=== PATIENT | male | born 1985 | race Two or more races ===

== ENCOUNTER 2024-05-22 07:56 | Outpatient (AMB) | payer OTHER, SELFPAY ==
--- NOTE | 2024-05-22 08:50 | MHC.OFFVISWM ---
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: Details: Start time: 8.43am, End time: 9.25am ?I spent 37 minutes speaking with the patient on the phone plus an additional 5 minutes reviewing and updating records for a total of 42 minutes HPI Comments Details: Previous weight loss efforts: self diets Wakes up: 6am, Sleeps: 10pm Breakfast: skips Lunch: 12pm (rice, beans and meat) Dinner: 7-8pm (same as lunch) Snacks: 9-10pm (sandwich) Exercise: has home treadmill and bike Fluids: Coffee: none, tea: none, soda: 2/wk (regular Coke), juice: 2-3/wk (lemonade, Grape juice), ETOH: 2/wk (6-7 beers each time) PFSH Medical History (Updated 05/22/24 @ 08:55 by Nathanael Oscar MD) Hypertension Hyperlipidemia Anxiety GERD (gastroesophageal reflux disease) Morbid obesity Surgical History (Updated 05/16/24 @ 14:43 by Marie Rosas CMA) Hx of knee surgery Family History (Updated 05/16/24 @ 14:51 by Marie Rosas CMA) Mother Depression Hypertension Father Hypertension Daughter No problems noted. Daughter No problems noted. Social History (Updated 05/16/24 @ 14:51 by Marie Rosas CMA) Alcohol intake: current Alcohol intake frequency: holidays/special occasions only Patient Tobacco Use Status: Never used Tobacco Telehealth Telehealth Telehealth Platform: Telephone Location of provider rendering services: practice address Location of patient: address on file Patient Identification confirmed using: Name, : Yes Telehealth method: voice only Patient verbally consented to treatment: Yes Patient verbally consented to billing insurance company: Yes Patient informed of any privacy concerns related to visit: Yes Minutes spent on Phone/Video with Pt.: 42 Assessment & Plan Assessment & Plan (1) Morbid obesity: Code(s): E66.01 - Morbid (severe) obesity due to excess calories Category: Medical Plan: 1.? Plan for lap sleeve gastrectomy. If diaphragmatic or ventral hernias are present at time of surgery, these will be repaired laparoscopically as well. I emphasized the importance of close follow-up, adherence to instructions and good communication. The surgery does not replace the need to change your lifestlyle which is the cause of the obesity problem. The surgery provides the motivation to try again to change your lifestyle, it reduces the appetite and make the transition to a better lifestyle easier and doubles the amount of weight you would lose compared to doing the lifestyle change without the surgery. You will need to be on a liquid diet with protein shakes for 2 weeks before surgery to maximize weight loss and boost your nutritional status to recover better from surgery and also for the first two weeks after surgery to let the stomach heal before we introduce other foods. After the first 2 weeks we will introduce protein bars and soft foods like scrambled eggs, cottage cheese and yogurt and after the 6th week will introduce meat, fish and cooked vegetables in small amounts. Over time you should be able to eat everything in small amounts. Side effects like nausea, vomiting, heartburn or abdominal pain are not common in the practice unless you are not following in the practice. This operation requires lifetime commitment to following in our practice and communication with me. You will much less weight and experience side effects if you don?t communicate or not following in the practice. Complications are rare and in our practice is about 1/10 of the national average. However, you can develop bleeding that may require transfusion (hasn?t happened for year in the practice), you may from complications (we did not have any deaths in the practice) and infections. Infections are usually a result of breakdown in communication or not understanding or following directions correctly. They are difficult to treat, they can happen during the first 6 weeks, they may require to be in the hospital for weeks or even months, not being able to eat by mouth and you may have drains and surgeries to try and correct the issue. Other risks and complications include possible conversion to an open procedure, leaks, small bowel obstruction, blood clots, cardiac, or pulmonary complications, as correction complications such as ulcers, insufficient weight loss and vitamin deficiencies. 2. You will receive a link of our software steffanie to generate an individualized nutritional and exercise plan specific for you. Please send me a screenshot of the plans you will generate Meal to include lean meat (beef, fish, pork, turkey, chicken), or albanian yogurt, or egg whites, or beans with a salad with olive oil and fruits (berries, pears, apples, kiwi). Avoid salt, breads, potatoes, rice, pasta, desserts. ?3. If you choose shakes, each shake would be drunk slowly, like coffee in a period of 2 hours. ?4. If you choose bars, cut each bar in 4 pieces and eat each piece in 30min ?to make each bar last 2 hours. ?5. I emphasized the importance of measuring accurately the food portion and measure it when serving the food in plate ?6. The meal portions include a specific number of forks of meat and salad. You always eat the meat portion but you can replace up to half of salad/vegetables portion with rice, potatoes or pasta, or a fruit ?if you like. The less you do it the better weight loss will be. ?7. One full-size fork is what it can be scooped on the fork without falling aside and not what can be bit with the fork. Use regular forks like those you find in a typical restaurant. ?8.? Please buy the body composition scale we discussed and send me weight measurements as soon as possible and then once a week. Always include your diet and exercise plan. 9. The best choice would be to purchase a stationary bike, elliptical or treadmill at home that can track calories. Let me know if you do so I can give you an exercise plan. ?10. Goal is to lose at least 1.5-2lbs per week ?11. Goal to lose 10% of your weight before surgery, which is about 29lbs. Ultimate weight goal: 262lbs before surgery 12. Please follow the diet plan exactly without any change. If you don't like something about the plan or you feel hungry you need to communicate with me so I can help you revise the plan. You should not change the plan yourself. 13. To be scheduled for EGD on 06/08/2024 due to the history of GERD. The possibility of biopsies was discussed. Patient needs to avoid use of NSAIDs and aspirin for 1 week prior to EGD. You must be on liquids only the day before your endoscopy. Risks of perforation and bleeding was discussed with the patient. This will be an outpatient procedure with IV sedation. Orders: Orders Insulin Today E66.01 - Morbid (severe) obesity due to excess calories, E78.5 - Hyperlipidemia, unspecified, I10 - Essential (primary) hypertension, K21.9 - Gastro-esophageal reflux disease without esophagitis Hemoglobin A1c Today E66.01 - Morbid (severe) obesity due to excess calories, E78.5 - Hyperlipidemia, unspecified, I10 - Essential (primary) hypertension, K21.9 - Gastro-esophageal reflux disease without esophagitis H Pylori Breath Test Today E66.01 - Morbid (severe) obesity due to excess calories, E78.5 - Hyperlipidemia, unspecified, I10 - Essential (primary) hypertension, K21.9 - Gastro-esophageal reflux disease without esophagitis Lipid Panel Today E66.01 - Morbid (severe) obesity due to excess calories, E78.5 - Hyperlipidemia, unspecified, I10 - Essential (primary) hypertension, K21.9 - Gastro-esophageal reflux disease without esophagitis IRON PROFILE Today E66.01 - Morbid (severe) obesity due to excess calories, E78.5 - Hyperlipidemia, unspecified, I10 - Essential (primary) hypertension, K21.9 - Gastro-esophageal reflux disease without esophagitis C Reactive Protein Today E66.01 - Morbid (severe) obesity due to excess calories, E78.5 - Hyperlipidemia, unspecified, I10 - Essential (primary) hypertension, K21.9 - Gastro-esophageal reflux disease without esophagitis Vitamin B1 Today E66.01 - Morbid (severe) obesity due to excess calories, E78.5 - Hyperlipidemia, unspecified, I10 - Essential (primary) hypertension, K21.9 - Gastro-esophageal reflux disease without esophagitis Vitamin A Today E66.01 - Morbid (severe) obesity due to excess calories, E78.5 - Hyperlipidemia, unspecified, I10 - Essential (primary) hypertension, K21.9 - Gastro-esophageal reflux disease without esophagitis TSH reflex Free T4 Today E66.01 - Morbid (severe) obesity due to excess calories, E78.5 - Hyperlipidemia, unspecified, I10 - Essential (primary) hypertension, K21.9 - Gastro-esophageal reflux disease without esophagitis Ferritin Today E66.01 - Morbid (severe) obesity due to excess calories, E78.5 - Hyperlipidemia, unspecified, I10 - Essential (primary) hypertension, K21.9 - Gastro-esophageal reflux disease without esophagitis Vitamin D 25-OH Total Today E66.01 - Morbid (severe) obesity due to excess calories, E78.5 - Hyperlipidemia, unspecified, I10 - Essential (primary) hypertension, K21.9 - Gastro-esophageal reflux disease without esophagitis XR chest 2V Today E66.01 - Morbid (severe) obesity due to excess calories, E78.5 - Hyperlipidemia, unspecified, I10 - Essential (primary) hypertension, K21.9 - Gastro-esophageal reflux disease without esophagitis FL upper GI w air Today E66.01 - Morbid (severe) obesity due to excess calories, E78.5 - Hyperlipidemia, unspecified, I10 - Essential (primary) hypertension, K21.9 - Gastro-esophageal reflux disease without esophagitis Complete Blood Count Auto Diff Today E66.01 - Morbid (severe) obesity due to excess calories, E78.5 - Hyperlipidemia, unspecified, I10 - Essential (primary) hypertension, K21.9 - Gastro-esophageal reflux disease without esophagitis Comprehensive Met. Panel Today E66.01 - Morbid (severe) obesity due to excess calories, E78.5 - Hyperlipidemia, unspecified, I10 - Essential (primary) hypertension, K21.9 - Gastro-esophageal reflux disease without esophagitis Vitamin B12 and Folate Today E66.01 - Morbid (severe) obesity due to excess calories, E78.5 - Hyperlipidemia, unspecified, I10 - Essential (primary) hypertension, K21.9 - Gastro-esophageal reflux disease without esophagitis Zinc Today E66.01 - Morbid (severe) obesity due to excess calories, E78.5 - Hyperlipidemia, unspecified, I10 - Essential (primary) hypertension, K21.9 - Gastro-esophageal reflux disease without esophagitis US abdomen comp w elastography Today E66.01 - Morbid (severe) obesity due to excess calories, E78.5 - Hyperlipidemia, unspecified, I10 - Essential (primary) hypertension, K21.9 - Gastro-esophageal reflux disease without esophagitis ECG 12 lead EKG Today E66.01 - Morbid (severe) obesity due to excess calories, E78.5 - Hyperlipidemia, unspecified, I10 - Essential (primary) hypertension, K21.9 - Gastro-esophageal reflux disease without esophagitis Referrals Behavioral Health Referral E66.01 - Morbid (severe) obesity due to excess calories, E78.5 - Hyperlipidemia, unspecified, I10 - Essential (primary) hypertension, K21.9 - Gastro-esophageal reflux disease without esophagitis Nutrition/Dietitian Referral E66.01 - Morbid (severe) obesity due to excess calories, E78.5 - Hyperlipidemia, unspecified, I10 - Essential (primary) hypertension, K21.9 - Gastro-esophageal reflux disease without esophagitis
[2024-05-22 08:59] VITALS: BMI 40.6
== END 2024-05-22 09:25 | disposition home or self-care (01) ==
LOC: HO.HBS 07:56
PROVIDERS: Visit Provider Surgery
DX: E66.813 Obesity, class 3 (principal); Z68.41 Body mass index [BMI] 40.0-44.9, adult
CPT/HCPCS: 99203

== ENCOUNTER 2024-06-02 14:01 | Outpatient (AMB) | payer OTHER, SELFPAY ==
--- NOTE | 2024-06-02 13:30 | A.OFFWM_ITS ---
Intake Intake Visit Reasons: VIDEO BH Intake Allergies No Known Allergies Allergy (Verified 06/08/24 12:48) PFSH Medical History Hypertension Hyperlipidemia Anxiety GERD (gastroesophageal reflux disease) Morbid obesity Surgical History Hx of knee surgery Family History Mother Depression Hypertension Father Hypertension Daughter No problems noted. Daughter No problems noted. Social History Are you a primary clinical care manager to a significant other at home: No Do you presently have visiting nurse or other home services: No Alcohol intake: current Alcohol intake frequency: holidays/special occasions only Patient Tobacco Use Status: Former Tobacco user Have you been hit, kicked, punched, or otherwise hurt by someone within the past year? If so, by whom?: No Are you DNR?: No Advance Directives: No Advance Directives Information Provided: Yes Recently lost weight without trying: No Nutrition Risks: No Nutritional Risk Behavioral Health Assessment Weight Management Therapy Therapy Notes Details PT is a 38 years old Male, who presents for initial visit to complete BH assessment as part of surgical weight loss program. Presenting Concerns Referral Source WMP-Provider. Pt had initial visit with Dr. Hope on 05/22/2024 Reason for referral Completion of behavioral health assessment as part of process for weight-loss surgery. Precipitating Event Obesity. initial weight: 291Lbs. Living Situation Current Living Situation Own At risk of losing current housing? No Satisfied with current living situation? Yes Comments PT lives with his , 2 daughters and recently his parents. Food/Weight/Diet Expectations of change Initial goal is to lose 10% of his weight before surgery, which is about 29lbs. Ultimate weight goal: 262lbs before surgery Initial weight on 05/22/2024: 291Lbs Most recent plan: PT is implementing the following: Current meal plan: 2 shakes, 2 bars and 1 meal (10F/10F) Exercise plan: has a treadmill and a bike at home. Trying to do at least 30 min at day to start. History/Relationship with food PT reports he tends to eat more when stressed or gets anxious. Example of meals before starting the program: Breakfast: Lunch: Dinner: Snacks: Drinks/Liquids: History/Relationship with weight In the last 10 years, the patient's Lowest weight was and highest Social History Family history and relationship PT is 13 years ago. They have 2 daughter, a 12 y/o and a 2 y/o. Parents are both alive, current living at his home temporarily. He has a sister. However she's distant from everybody. PT reports he has good family dynamics. 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 Developmental history and status Reading and writing issues, received support in school. Still is weak . He was on special education program. Social support , parents. Community support PCP. [employer] [facility]. Cultural/Ethnic information [place], born [place], moved to the [place] at age 10. PT speaks [place] and [place]. Legal Involvement and History Current or historical involvement with the legal system? None. Education Highest grade completed 9th grade. Preferred learning style Learn by doing and Visual Currently enrolled in educational program? No Interested in further educational program? No Educational Interests/Skills PT is interested in obtaining his GED. 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 [employer]) Wants help to find employment? No Meaningful activities Family activities. None for himself or on his own. Financial Situation Describe current financial situation Comfortable and Occasional struggle Financial assistance? Food [place] Service Service? No Mental Health and Addiction Treatment Current/Past substance abuse? Yes Comments Alcohol: big beer drinking . Drinks 6+ beers 1-2 times at week. Cigarettes/Tobacco: None Cannabis/Edibles: None. Current/Past addictive behavior concerns? No Psychiatric history PT reports he is not in any type of MH treatment at the moment. He was Dx with anxiety when younger, and he attended services trough his PCP and took some medicine for a short period of time. PT reports he's still an overthinker, at times loss sleep when stressed. PT denies ever been in crisis or inpatient for mental health. There is no history and/or current concern about SI/SA and self-harm or other harm. Medical and Physical Health Summary Additional Medical History not covered in history None. Sexual History concerns None reported. Physical exam in the last year? Yes Pain Screening Current pain? No Pain in the last few months? Yes Comments knee pain when cold or stands for a long period of time. He had a surgery. Medications Is the patient compliant with medications? Not applicable Does the patient have Cid Guardian in place? Not applicable Does the patient use complimentary health approaches? No Questionnaires PHQ-9 Over the last 2 weeks, how often have you been bothered by any of the following problems? 1. Little interest or pleasure in doing things: not at all 2. Feeling down, depressed, or hopeless: not at all 3. Trouble falling or staying asleep, or sleeping too much: not at all 4. Feeling tired or having little energy: not at all 5. Poor appetite or overeating: not at all 6. Feeling bad about yourself - or that you are a failure or have let yourself or your family down: not at all 7. Trouble concentrating on things, such as reading the newspaper or watching television: not at all 8. Moving or speaking so slowly that other people could have noticed. Or the opposite - being so fidgety or restless that you have been moving around a lot more than usual: not at all 9. Thoughts that you would be better off or of hurting yourself in some way: not at all Total score: 0 Depression Screening Interpretation: Negative (Form new PT pack) Depression Screening Done: Yes Source: Developed by Drs. Sandoval Brito, Ana Bhagat, Jim Sandhu and colleagues, with an educational ezekiel from [employer]. Binge Eating Scale Group 1 A. I don't feel self-conscious about my wt. or body size when I'm with others. B. I feel concerned about how I look to others, but it normally does not make me fell disappointed with myself C. I do get self-conscious about my appearance and wt. which makes me feel disappointed in myself. D. I feel very self-conscious about my wt. and frequently I feel intense shame and disgust for myself. I try to avoid social contacts because of my self- consciousness. Response Group 1: C Group 2 A. I don't have any difficulty eating slowly in the proper manner. B. Although I seem to gobble down foods, I don't end up feeling stuffed because of eating to much. C. At times, I tend to eat quickly and then, I feel uncomfortably full afterwards. D. I have the habit of bolting down my food, without really chewing it. When this happens I usually feel uncomfortably stuffed because I've eaten to much. Response Group 2: A Group 3 A. I feel capable to control my eating urges when I want to. B. I feel like I have failed to control my eating more than the average person. C. I feel utterly helpless when it comes to feeling in control of my eating urges. D. Because I feel so helpless about controlling my eating I have become very desperate about trying to get control. Response Group 3: A Group 4 A. I don't have the habit of eating when I'm bored. B. I sometimes eat when I'm bored, but often I'm able to get busy and get my mind off food. C. I have a regular habit of eating when I'm bored, but occasionally, I can use some other activity to get my mind off eating. D. I have a strong habit of eating when I'm bored. Nothing seems to help me breath the habit. Response Group 4: B Group 5 A. I'm usually physically hungry when I eat something. B. Occasionally, I eat something on impulse even though I really am not hungry. C. I have the regular habit of eating foods, that I might not really enjoy, to satisfy a hungry feeling even though physically, I don't need the food. D. Although I'm not physically hungry, I get a hungry feeling in my mouth that only seems to be satisfied when I eat a food, like sandwich, that fills my mouth. Sometimes, when I eat the food to satisfy my mouth hunger, I then spit the food out so I won't gain weight. Response Group 5: A Group 6 A. I don't feel any guilt or self-hate after I overeat. B. After I overeat, occasionally I feel guilt or self-hate. C. Almost all the time I experience strong guilt or self-hate after I overeat. Response Group 6: B Group 7 A. I don't lose total control of my eating when dieting even after periods when I overeat. B. Sometimes when I eat a forbidden food on a diet, I feel like I blew it and eat even more. C. Frequently, I have the habit of saying to myself, I've blown it now, why not go all the way, when I overeat on a diet. When that happens I eat more. D. I have a regular habit of starting a strict diets for myself but I break the diets by going on an eating binge. My life seems to be either a feast or famine. Response Group 7: A Group 8 A. I rarely eat so much food that I feel uncomfortably stuffed afterwards. B. Usually about once a month, I each such a quantity of food, I end up feeling very stuffed. C. I have regular periods during the month when I eat large amounts of food, either at mealtime or at snacks. D. I eat so much food that I regularly feel quite uncomfortable after eating and sometimes a bit nauseous. Response Group 8: A Group 9 A. My level of calorie intake does not go up very high or go down very low on a regular basis. B. Sometimes after I overeat, I will try to reduce my caloric intake to almost nothing to compensate for the excess calories I've eaten. C. I have a regular habit of overeating during the night. It seems that my routine is not to be hungry in the morning but overeat in the evening. D. In my adult years, I have had week-long periods where I practically starve myself. This follows periods when I overeat. It seems I live a life of either fe ast or famine. Response Group 9: A Group 10 A. I usually am able to stop eating when I want to. I know when enough is enough. B. Every so often, I experience a compulsion to eat which I can't seem to control. C. Frequently, I experience strong urges to eat which I seem unable to control, but at other times I can control my eating urges. D. I feel incapable of controlling urges to eat. I have a fear of not being able to stop eating voluntarily. Response Group 10: A Group 11 A. I don't have any problem stopping eating when I feel full. B. I usually can stop eating when I feel full but occasionally overeat leaving me feeling uncomfortably stuffed. C. I have a problem stopping eating once I start and usually I feel uncomf ortably stuffed after I eat a meal. D. Because I have a problem not being able to stop eating when I want, I sometimes have to induce vomiting to relieve my stuffed feeling. Response Group 11: A Group 12 A. I seem to eat just as much when I'm with others, Family social gatherings as when I'm by myself. B. Sometimes, when I'm with other persons, I don't eat as much as I want to eat because I'm self-conscious about my eating. C. Frequently, I eat only a small amount of food when others are present, because I'm very embarrassed about my eating. D. I feel so ashamed about overeating that I pick times to overeat when I know no one will see me. I feel like a closet eater. Response Group 12: A Group 13 A. I eat three meals a day with only an occasional between meal snack. B. I eat 3 meals a day, but I also normally snack between meals. C. When I am snacking heavily, I get in the habit of skipping regular meals. D. There are regular periods when I seem to be continually eating, with no planned meals. Response Group 13: A Group 14 A. I don't think much about trying to control unwanted eating urges. B. At least some of the time, I feel my thoughts are pre-occupied with trying to control my eating urges. C. I feel that frequently I spend much time thinking about how much I ate or about trying not to eat anymore. D. It seems to me that most of my waking hours are pre-occupied by thoughts about eating or not eating. I feel like I'm constantly struggling not to eat. Response Group 14: A Group 15 A. I don't think about food a great deal. B. I have strong craving for food but they last only for brief periods of time. C. I have days when I can't seem to think about anything else but food. D. Most of my days seem to be pre-occupied with thoughts about food. I feel like I live to eat. Response Group 15: A Group 16 A. I usually know whether or not I'm physically hungry. I take the right portion of food to satisfy me. B. Occasionally, I feel uncertain about knowing whether or not I'm physically hungry. A these times it's hard to know how much food I should take to satisfy me. C. Even though I might know how many calories I should eat, I don't have any idea what is a normal amount of food for me. Response Group 16: A Binge Eating Score: 4 Score less than 17 Minimal Risk Score between 18-26 Moderate Risk Score between 27-46 High Risk Assessment & Plan Assessment & Plan (1) Adjustment disorder with anxiety: Code(s): F43.22 - Adjustment disorder with anxiety Plan Not cleared yet. Will return in 2 weeks to finish assessment. Next steffanie: 06/15/24 at 11am, Telehealth Telehealth Telehealth Platform: [facility] Location of provider rendering services: practice address Location of patient: address on file Patient Identification confirmed using: Name, : Yes Telehealth method: voice only Patient verbally consented to treatment: Yes Patient verbally consented to billing insurance company: Yes Patient informed of any privacy concerns related to visit: Yes Minutes spent on Phone/Video with Pt.: 60 Coding Level of Care Code New Pt Tele Psy Diag Eval (55261) Patient Type New Diagnoses Adjustment disorder with anxiety F43.22 Time Spent (min) 60
== END 2024-06-02 14:49 | disposition home or self-care (01) ==
LOC: HO.HBST 14:01
PROVIDERS: Visit Provider Counselor Mental Health
DX: F43.22 Adjustment disorder with anxiety (principal)
CPT/HCPCS: 90791

== ENCOUNTER 2024-06-08 10:47 | Outpatient (REF) | payer OTHER, SELFPAY ==
--- NOTE | ~2024-06-08 | XR_ITS ---
EXAMINATION: XR CHEST 2 VIEWS HISTORY: E66.01 - Morbid (severe) obesity due to excess calories COMPARISON: There are no prior studies for comparison. FINDINGS: PA and lateral views of the chest are submitted. The lungs are expanded and clear. There is no pleural effusion, pneumothorax, or pulmonary vascular congestion. The heart is normal in size. The bones are intact. XR/XR chest 2V IMPRESSION: Normal examination of the chest. Electronically signed by: Sandoval Naranjo MD 06/09/2024 07:57 AM EST
--- NOTE | 2024-06-08 10:55 | ECG_ITS ---
Test Reason : MOR OBS Blood Pressure : */* mmHG Vent. Rate : 59 BPM Atrial Rate : 59 BPM P-R Int : 160 ms QRS Dur : 98 ms QT Int : 404 ms P-R-T Axes : 20 15 -5 degrees QTcB Int : 399 ms Sinus bradycardia Otherwise normal ECG No previous ECGs available Referred By: Nathanael Oscar Electronically Signed By: Manfred Pablo
[2024-06-08 11:35] LABS: MANUAL DIFF FLAG NO
[2024-06-08 12:06] LABS: Basophils Absolute Auto 0.1 X10*3/uL (0.0-0.2); Basophils Percent Auto 1.1 % (0-2); Eosinophils Absolute Auto 0.3 X10*3/uL (0.0-0.4); Eosinophils Percent Auto 4.4 % (0-4); Hematocrit 46.6 % (42.0-52.0); Hemoglobin 15.7 g/dl (14.0-18.0); Imm Gran Abs Auto 0.03 X10*3/uL (0.00-0.03); Imm Gran Pct Auto 0.4 % (0.0-0.4); Lymphocytes Absolute Auto 2.3 X10*3/uL (1.2-4.9); Lymphocytes Percent Auto 32.9 % (20-40); Mean Corpuscular HGB Conc 33.7 g/dl (31.0-36.0); Mean Corpuscular Hemoglobin 27.9 pg (27.0-33.0); Mean Corpuscular Volume 82.8 fL (80.0-98.0); Mean Platelet Volume 9.7 fL (9.4-12.4); Monocytes Absolute Auto 0.5 X10*3/uL (0.1-1.2); Monocytes Percent Auto 7.5 % (2-11); Neutrophils Absolute Auto 3.8 x10*3/uL (2.0-8.3); Neutrophils Percent Auto 53.7 % (45-73); Platelet Count 263 X10*3/uL (160-400); Red Blood Count 5.63 X10*6/uL (4.60-5.80); Red Cell Distribution Width 12.7 % (11.0-16.0); White Blood Count 7.1 X10*3/uL (4.8-10.8)
[2024-06-08 12:16] LABS: Estimated Average Glucose 114 mg/dL; Hemoglobin A1C 153.6796 umol/L; Hemoglobin A1c % 5.6 % (<6.0); Total Hemoglobin (HGBA1C) 4115.7356 umol/L
[2024-06-08 12:57] LABS: Alanine Aminotransferase 39 U/L (0-40); Albumin Level 4.8 g/dL (3.5-5.0); Alkaline Phosphatase 57 U/L (39-117); Anion Gap 11 (12-20); Aspartate Amino Transferase 39 U/L (5-37); Bilirubin Total 0.6 mg/dL (0.0-1.0); Blood Urea Nitrogen 14 mg/dL (9-16); C Reactive Protein 0.36 mg/dL (< or = 0.50); Calcium 9.4 mg/dL (8.4-10.2); Carbon Dioxide 28 mmol/L (22-29); Chloride 106 mmol/L (96-108); Cholesterol 232 mg/dL (<200); Estimated Glomerular Filt Rate > 60; Glucose Random 101 mg/dL (60-115); HDL Cholesterol 41 mg/dL (>40); Iron 112 mcg/dL (45-160); LDL Cholesterol Calculated 142 mg/dL (<100); Percent Iron Saturation 35 % (15-50); Potassium 4.1 mmol/L (3.3-5.1); Sodium 141 mmol/L (135-145); Total Iron Binding Capacity 319 mcg/dL (228-428); Total Protein 8.5 g/dL (6.5-8.0); Triglycerides 248 mg/dL (<150); Unsaturated Iron Binding 207 ug/dL
[2024-06-08 12:59] LABS: Ferritin 343 ng/mL (20-250); Vitamin D 25-OH Total 24.2 ng/mL (>30)
[2024-06-08 13:07] LABS: Folate 7.5 ng/mL (> or = 4.0); Vitamin B12 600 pg/mL (200-900)
[2024-06-08 13:31] LABS: Insulin 11 uU/mL (2-29)
[2024-06-13 18:54] LABS: Zinc 90 mcg/dL (60-130)
[2024-06-14 12:18] LABS: Vitamin A 78 mcg/dL (38-98)
[2024-06-14 15:29] LABS: Vitamin B1 <6 nmol/L (8-30)
== END 2024-06-08 10:48 | disposition home or self-care (01) ==
LOC: HO.LAB 10:47
PROVIDERS: Visit Provider Surgery
DX: E66.01 Morbid (severe) obesity due to excess calories (principal); K21.9 Gastro-esophageal reflux disease without esophagitis; I10 Essential (primary) hypertension; E78.5 Hyperlipidemia, unspecified
CPT/HCPCS: 36415; 71046; 80053; 80061; 82306; 82607; 82728; 82746; 83036; 83525; 83540; 84425; 84443; 84590; 84630; 85025; 86140; 93005

== ENCOUNTER → 2024-06-08 10:55 | Outpatient (BNV) | payer OTHER, SELFPAY | PROVIDERS: Visit Provider Internal Medicine Cardiovascular Disease | DX: R00.1 Bradycardia, unspecified (principal) | CPT/HCPCS: 93010 ==

== ENCOUNTER → 2024-06-08 11:38 | Outpatient (BNV) | payer OTHER, SELFPAY | PROVIDERS: Visit Provider Radiology Diagnostic Radiology | DX: Z01.818 Encounter for other preprocedural examination (principal) | CPT/HCPCS: 71046 ==

== ENCOUNTER 2024-06-08 12:07 | Day surgery (SDC) | payer OTHER, SELFPAY ==
--- OUTSIDE RECORDS SUMMARY | 2024-06-05 18:45 | XMS_ITS | Continuity of Care Document ---
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 unchanged. The fatigue occurs constantly. The patient presents with fatigue and somnolence. The patient does not present with nausea or vomiting. Risk factors include depression. The patient denies any chills, constipation, dyspnea, flank pain, hoarseness and pruritus. Additional information: had some dizziness upon starting wellbutrin but resolved. feeling good with medication, hasn't increased to BID dosing yet, wasn't sure if it was ok. Acne The patient pres ents with acne that began 4 months ago. The problem is moderate and unchanged. Area(s) affected include the back, chest and face. Additional information: ater stopping T. depression This is an initi al visit. The patient reports functioning as somewhat difficult. The patient presents with difficulty concentrating, excessive worry and fatigue but denies restlessness or thoughts of or suicide. Interventions the patient has tried have not provided any relief. preventive exam in grow hair preventive exam Men's preventive visit. Eye problems Functional Status Date Functional Assessmen t No Information Instructions Date Instruction Additional Infor rafikaushik Dietary and exercise management, guidance, and counseling Related to Morbid (severe) obesity due to excess calories Dietary and exercise management, guidance, and counseling Related to Body mass index (BMI) 40.0-44.9, adult Dietary and exercise management, guidance, and counseling Related to Obesity, unspecified Dietary and exercise management, guidance, and counseling Related to Body mass index (BMI) 39.0-39.9, adult Dietary management e ducation, guidance, and counseling Related to Body mass index (BMI) 38.0-38.9, adult Dietary management e ducation, guidance, and counseling Related to Body mass index (BMI) 37.0-37.9, adult Assessments Type Assessment Date No Information Patient Care Teams Name Effective Dates (start - stop) Status Members No Information
[2024-06-06 06:44] VITALS: BMI 40.6
--- NOTE | 2024-06-06 14:30 | HO.ANESPROP2 ---
Documented by User: Ingrid Guy NP 06/06/24 14:30 HPI - Anesthesia Eval Consult details Narrative: 38yo M for Upper Endoscopy PMFSH Active Problems Active Problems: All Active Problems Hypertension (Acute) Hyperlipidemia (Acute) Anxiety (Acute) GERD (gastroesophageal reflux disease) (Acute) Morbid obesity (Acute) Past Medical History Medical History Hypertension Hyperlipidemia Anxiety GERD (gastroesophageal reflux disease) Morbid obesity Family History Family History Mother Depression Hypertension Father Hypertension Daughter No problems noted. Daughter No problems noted. Surgical History Surgical History Hx of knee surgery Social History Social History Are you a primary child day care center worker to a significant other at home: No Do you presently have visiting nurse or other home services: No Alcohol intake: current Alcohol intake frequency: holidays/special occasions only Patient Tobacco Use Status: Former Tobacco user Meds Allergies Allergy/AdvReac Type Severity Reaction Status Date / Time No Known Allergies Allergy Verified 06/08/24 12:48 Home Medications ?Medication ?Instructions ?Recorded ?Confirmed ?Last Taken ?Type omeprazole 20 mg capsule,delayed 20 mg PO BID 05/16/24 06/08/24 Unknown History release cholecalciferol (vitamin D3) 50 50 mcg PO DAILY 05/19/24 06/08/24 Unknown History mcg (2,000 unit) capsule (Vitamin D3) fish oil PO 05/19/24 05/22/24 Unknown History rosuvastatin 10 mg tablet 10 mg PO BEDTIME 06/07/24 06/08/24 Unknown History Exam Height,Weight and Vital Signs: Height 5 ft 11 in Weight 131.995 kg Assessment and Plan Assessment Anesthesia Assessment: Chart Reviewed Documented by User: Nadine Galvez MD 06/08/24 15:12 [facility] Active Problems Active Problems: All Active Problems Hypertension (Acute) Hyperlipidemia (Acute) Anxiety (Acute) GERD (gastroesophageal reflux disease) (Acute) Morbid obesity (Acute) Snores, possibly ATIYA per patient's but never tested Past Medical History Medical History Hypertension Hyperlipidemia Anxiety GERD (gastroesophageal reflux disease) Morbid obesity Family History Family History Mother Depression Hypertension Father Hypertension Daughter No problems noted. Daughter No problems noted. Family history of problems with anesthesia: No Surgical History Surgical History Hx of knee surgery History of Problems with Anesthesia: No Social History Social History Are you a primary child day care center worker to a significant other at home: No Do you presently have visiting nurse or other home services: No Alcohol intake: current Alcohol intake frequency: holidays/special occasions only Patient Tobacco Use Status: Former Tobacco user Meds Allergies Allergy/AdvReac Type Severity Reaction Status Date / Time No Known Allergies Allergy Verified 06/08/24 12:48 Home Medications ?Medication ?Instructions ?Recorded ?Confirmed ?Last Taken ?Type omeprazole 20 mg capsule,delayed 20 mg PO BID 05/16/24 06/08/24 Unknown History release cholecalciferol (vitamin D3) 50 50 mcg PO DAILY 05/19/24 06/08/24 Unknown History mcg (2,000 unit) capsule (Vitamin D3) fish oil PO 05/19/24 05/22/24 Unknown History rosuvastatin 10 mg tablet 10 mg PO BEDTIME 06/07/24 06/08/24 Unknown History Exam Height,Weight and Vital Signs: Height 5 ft 11 in Weight 131.995 kg Vital Signs Temp Pulse Resp BP Pulse Ox O2 Del Method 97.9 F 82 18 140/87 H 96 Room Air 06/08/24 13:06 06/08/24 13:06 06/08/24 13:06 06/08/24 13:06 06/08/24 13:06 06/08/24 13:06 Airway Mallampati Class: III (Short neck) TM Dist: >3cm Neck ROM: Full Loose/Missing/Broken Teeth: No Heart: RRR Lungs: CTAB Assessment and Plan Assessment Anesthesia Assessment: Anesthesia Plan Discussed and Chart Reviewed Final Anesthetic Review Family History of Problems with Anesthesia: No History of Problems with Anesthesia: No NPO: Yes ASA Class: III Final Preanesthetic Review: No Changes in Pt Med Stat, Meds/Allgs Chart Reviewed, Consent Obtained/Reviewed and Anes Risks/Benef Reviewed Patient Risk: Intermediate Procedure Risk: Low Assessment/Block/Sedation in SS: Assess/Block/Sedation-SS Anesthetic Plan Anesthetic Plan: TIVA Disposition: Standard PACU
[2024-06-08 12:46] VITALS: BMI 39.9
[2024-06-08] MEDS: Lactated Ringers 1,000 ML 80 ML IVCONT (13:04)
[2024-06-08 13:06] VITALS: BP 140/87; PULSE 82; RESP 18; TEMP 36.6; O2SAT 96
--- NOTE | 2024-06-08 13:58 | P.BOP_ITS ---
Brief Operative Note Date of Service: 06/08/24 Pre-op diagnosis: GERD Post-op diagnosis: same (& esophagitis) Procedure: PROCEDURE DATE: 06/08/2024 PREOPERATIVE DIAGNOSIS: GERD POSTOPERATIVE DIAGNOSIS: ?Same as above. 1) esophagitis, 2) gastritis, 3) small hiatal hernia PROCEDURE: [id number] with biopsies Surgeon: ?Les Oscar M.D.. Ph.D. Research Methodologist: None ? Anesthesia: IV sedation Estimated blood loss: ?Minimal FINDINGS AND PROCEDURE: ? OPERATIVE INDICATIONS: ?The patient is a 38 year old male known to me who is interested in bariatric surgery. The patient has GERD. Based on this information I recommended an upper endoscopy to evaluate the patient's symptoms. Risks and complications of the surgery were discussed with the patient in advance particularly the possibility of perforation or bleeding that may require surgical intervention. The patient understood the risks and was in agreement with the plan. ? PROCEDURE: After informed consent was obtained by the patient, the patient was ?transferred to the Operating Room and was placed in the supine position.? After successful induction of IV sedation, a mouth block was inserted and the patient was placed in the left lateral decubitus position. An upper endoscopy was performed next, the oropharynx and esophagus appeared within the normal limits. There was a small 2-3cm hiatal hernia. The z-line was irregular with gastric mucosa protruding into the esophagus. Two biopsies were obtained from the distal esophagus 2-3 cm proximal to the GE junction and two additional biopsies from the GE junction. The stomach was entered and it appeared to be of normal size. There was mild gastritis. There was no stricture or ulcer. A biopsy was obtained from the gastric fundus and the antrum. No significant bleeding was noted from any of the biopsy sites. Retroflexion of the scope confirmed the presence of a small hiatal hernia. The scope was then advanced into the duodenum which appeared to be normal as well. At that point the duodenum ?and the stomach were decompressed and the scope was withdrawn from the patient's mouth. The patient extubated and was transferred in stable condition to the Recovery Room for further care. I was present and performed all steps of the procedure. There were no residents to assist with this case. Les Oscar M.D., Ph.D. Surgeon: Nathanael Oscar MD Anesthesia: MAC Was an Research Methodologist used for this Procedure?: No Estimated blood loss (mL): 0 IV fluids (mL): 400 Urine output (mL): 0 (No Chapman to record output) Pathology: other (1) antrum x1, 2) fundus x1, 3) GE junction x2, 4) distal esophagus x2) Condition: stable Disposition: PACU
--- NOTE | 2024-06-08 13:58 | MHC.SHP ---
Pre-Procedural Eval Section A - 24 Hr Update-Section A only Date of Service: 06/08/24 The patient is an INPATIENT: No The patient has been examined within 24 hours of the surgical procedure. The History & Physical has been completed within 30 days and I have reviewed it.: Yes Section B - Complete if H&P > 30 days Chief Complaint: Gastro-esophageal reflux disease without esophagit Relevant Family History (Specify if Yes): No Relevant Social History: None Present Medications: None Medical History: No relevant PMH History of Previous Operations: No relevant previous surgery Allergies: Allergies Allergy/AdvReac Type Severity Reaction Status Date / Time No Known Allergies Allergy Verified 06/08/24 12:48 Review of Systems Sugical H&P ROS: Negative: Constitution, Cardiovascular, Respiratory, Neurological, Psychiatric, Hem-Onc, Allergic/Immunologic, Gastrointestinal, Genitourinary, Musculoskeletal, Integumentary, Endocrine and Eyes/Ears/Nose/Throat Exam Surgical H&P Exam: Normal: HEENT, Normal: Heart, Normal: Lungs, Normal: Extremities, Normal: Abdomen, Normal: Skin and Normal: Neurological Plan Diagnosis/Plan: Unchanged (EGD to assess etiology of GERD. Risks of bleeding and perforation were discussed with the patient and he is in agreement with the plan.) I have reviewed the history and physical and performed a pertinent physical examination on my patient. No changes have occurred unless specified. Time Spent With Patient Time: Total time managing care of this patient today ____ minutes.
[2024-06-08 15:02] VITALS: BP 109/70; PULSE 93; RESP 29; TEMP 36.8; O2SAT 97
[2024-06-08 15:15] VITALS: BP 134/80; PULSE 81; RESP 20; O2SAT 97
[2024-06-08 15:27] VITALS: BP 134/81; PULSE 84; RESP 20; TEMP 36.7; O2SAT 97
== END 2024-06-08 15:36 | disposition home or self-care (01) ==
PROVIDERS: Visit Provider Surgery
PROC: 0DJ08ZZ Inspection of Upper Intestinal Tract, Via Natural or Artificial Opening Endoscopic (ICD-10-PCS; CPT 43235; principal; 2024-06-08 14:30)
DX: K21.9 Gastro-esophageal reflux disease without esophagitis (principal); E66.01 Morbid (severe) obesity due to excess calories; Z68.41 Body mass index [BMI] 40.0-44.9, adult; K20.80 Other esophagitis without bleeding; K29.50 Unspecified chronic gastritis without bleeding; K44.9 Diaphragmatic hernia without obstruction or gangrene; I10 Essential (primary) hypertension; E78.5 Hyperlipidemia, unspecified; F41.9 Anxiety disorder, unspecified; Z79.899 Other long term (current) drug therapy; Z98.890 Other specified postprocedural states; Z87.891 Personal history of nicotine dependence
CPT/HCPCS: 43239; 88305; 88342; J1596; J2003; J2704

== ENCOUNTER → 2024-06-08 12:07 | Outpatient (BNV) | payer OTHER, SELFPAY | PROVIDERS: Visit Provider Surgery | DX: K21.00 Gastro-esophageal reflux disease with esophagitis, without bleeding (principal); K29.70 Gastritis, unspecified, without bleeding | CPT/HCPCS: 43239 ==